=== PATIENT | female | born 1970 ===

== ENCOUNTER 2021-10-26 08:02 | Outpatient (CLI) | payer OTHER, SELFPAY ==
--- NOTE | 2021-10-26 06:00 | DI.RAD_ITS ---
Exam(s) XR PAIN CLINIC FLUORO JOINT IN EXAM: XR PAIN CLINIC FLUORO JOINT IN CLINICAL HISTORY: Dx: Right shoulder pain. TECHNIQUE: Fluoroscopy was provided for the referring physician for guidance with performing pain cl inic injection procedure. COMPARISON: No exams were available for comparison FINDINGS: Right shoulder injection. Please see procedure note for details. Fluoro time: 42.6 seconds RADIATION DOSE DELIVERED: Ka,r=3.9 mGy
[2021-10-26 08:14] VITALS: BP 119/73; PULSE 70; RESP 20; TEMP 36.5; O2SAT 99
--- NOTE | 2021-10-26 09:07 | PDOC.PAIN ---
Pain Clinic Procedure Note Procedure Note Procedure Note: Right Shoulder nerve block PROCEDURE NOTE Date of Service: October 26, 2021 Patient: Keyona Irwin Provider: Ulysses Guan, MPH Pre Operative Diagnosis: Shoulder Pain Post Operative Diagnosis: Same Pre-procedure pain: VAS= 5/10 PROCEDURE: 1. Nerve block of the right Suprascapular articular branch from the Suprascapular Nerve 2. Nerve block of the right Axillary articular branch from the Axillary Nerve 3. Nerve block of the right Lateral Pectoral articular branch from the Lateral Pectoral Nerve Keyona Irwin was brought to the procedure room and placed on the exam table in a comfortable supine position for the posterior ablations of the Suprascapular and Axillary nerve branches. The target site for needle placement was obtained by manual palpation with radiographic confirmation. The sterile field was prepared using chloroprep and sterile drapes. Local anesthesia superficial and deep was provided by local infiltration of 2% lidocaine. The patient was rotated after the completion of the posterior Suprascapular and Axillary nerve branch block to a prone position to perform the anterior ablation of the Lateral Pectoral nerve branch. The target site for needle placement was obtained by manual palpation with radiographic confirmation. The sterile field was prepared using chloraprep and sterile drapes. Local anesthesia superficial was provided by local infiltration of 1cc of 2% Lidocaine. I placed 1 cc of 0.5% Bupivacaine at each target site. A 22G 3.5 spinal needle was placed over the right shoulder joint. For the suprascapular target the spinal needle was placed inferior to the spinoglenoid notch on the most lateral border of the glenoid fossa rim. For the axillary target the spinal needle was advanced to the inferior most lateral border of the greater tubercle. For the lateral pectoral target the spinal needle was placed at the midpoint of the coracoid process. All imaging was done using fluoroscopy. I placed 1 cc of 0.5% Bupivacaine at the target site. The needles were withdrawn. POST PROCEDURE EVALUATION: Post-procedure pain VAS = 2/10. Much better range of motion to the right shoulder after the procedure. She will keep track of the 1-4 hour post-procedure pain levels to the right shoulder. She will call us back with these pain scores. Follow up plans and appointments were discussed with the Keyona . Post procedure instruction was given as documented in nursing documentation and having met discharge criteria, Keyona was discharged from the [facility]. COMMENTS: No complications. F/U with our office as needed. I personally performed this entire procedure. Ulysses Guan DO, MPH Attending Physician Pain Management
[2021-10-26 09:20] VITALS: BP 127/80; PULSE 58; RESP 12; O2SAT 100
[2021-10-26] MEDS: Bupivacaine 0.5% Pres-Free 30 ML VIAL IJ (09:54)
[2021-10-26] MEDS: Omnipaque 240 MG/ML 50 ML BTL IJ (09:55)
== END 2021-10-26 08:03 | disposition home or self-care (01) ==
LOC: PC 08:04
PROVIDERS: Visit Provider Preventive Medicine Occupational Medicine
DX: M25.511 Pain in right shoulder (principal)
CPT/HCPCS: 64450; 64418; 77002; Q9967

== ENCOUNTER 2022-04-12 11:02 | Outpatient (CLI) | payer OTHER, SELFPAY ==
[2022-04-12 11:10] VITALS: BP 117/60; PULSE 68; RESP 20; TEMP 37; O2SAT 99
[2022-04-12] MEDS: fentaNYL 100 MCG/2 ML VIAL IVP ×3 (11:47→12:27)
[2022-04-12] MEDS: Midazolam 2 MG/2 ML VIAL IVP (11:47)
[2022-04-12] MEDS: Lactated Ringers 500 ML 80 ML IV (11:48)
--- NOTE | 2022-04-12 12:45 | DI.RAD_ITS ---
Exam(s) XR PAIN CLINIC FLUORO JOINT IN EXAM: XR PAIN CLINIC FLUORO JOINT IN CLINICAL HISTORY: Dx: Shoulder Pain TECHNIQUE: 2D and realtime digital imaging was performed. CONTRAST MATERIAL: Refer to procedure report. COMPARISON: No exams were available for comparison FINDINGS: Fluoroscopy was provided for Dr. Guan during the performance of a right shoulder radiofrequency abla tion. Please refer to the procedure report for complete details. Ka,r=8.06 mGy IMPRESSION:
[2022-04-12 12:49] VITALS: BP 133/89; PULSE 60; RESP 18; O2SAT 100
--- NOTE | 2022-04-12 13:10 | PDOC.PAIN ---
Date of service: 04/12/22 Time of Service: 13:17 Pain Clinic Procedure Note Procedure Note Procedure Note: Right Shoulder Radiofrequency with Coolief Machine PROCEDURE NOTE Date of Service: April 12, 2022 Patient: Keyona Irwin Provider: Ulysses Guan DO, MPH Pre Operative Diagnosis: Shoulder Pain Post Operative Diagnosis: Same Pre-procedure pain: VAS= 6/10 PROCEDURE: 1. Ablation of the Suprascapular articular branch from the Suprascapular Nerve 2. Ablation of the Axillary articular branch from the Axillary Nerve 3. Ablation of the Lateral Pectoral articular branch from the Lateral Pectoral Nerve Keyona Irwin was brought to the procedure room and placed on the exam table in a comfortable supine position for the posterior ablations of the Suprascapular and Axillary nerve branches. The target site for needle placement was obtained by manual palpation with radiographic confirmation. The sterile field was prepared using chloroprep and sterile drapes. Local anesthesia superficial and deep was provided by local infiltration of 2% lidocaine. The patient was rotated after the completion of the posterior Suprascapular and Axillary nerve branch ablations to a prone position to perform the anterior ablation of the Lateral Pectoral nerve branch. The target site for needle placement was obtained by manual palpation with radiographic confirmation. The sterile field was prepared using chloraprep and sterile drapes. Local anesthesia superficial and deep was provided by local infiltration of []. A 17g 75 mm radiofrequency introducer needle with a 2 mm active tip was placed overlying the [right/left] shoulder joint. For the suprascapular target the introducer was placed inferior to the spinoglenoid notch on the most lateral border of the glenoid fossa rim and then redirected inferiorly approximately 4mm for the 2nd lesion. For the axillary target the introducer was advanced to the inferior most lateral border of the greater tubercle and then repositioned approximately 4mm inferiorly for the 2nd lesion. For the lateral pectoral target the introducer was placed at the midpoint of the coracoid process. All imaging was done using fluoroscopy. Attempted aspiration yielded no blood. Lateral x-ray views showed all the needles at proper depth. Motor stimulation was tested ad 2.0 volts with no arm movement. Images were saved in AP and lateral. A mixture consisting of [] was slowly injected. Then a radiofrequency ablation of each of the shoulder nerve branches (suprascapular, axillary, and lateral pectoral) were done at 80 degrees Celsius for 2 minutes and 30 seconds each. The needles were withdrawn. POST PROCEDURE EVALUATION: IMPRESSION: 1. The patient will be contacted in 4-6 weeks for follow up. 2. Estimated Blood Loss: < 5ml 3. Medications that were given are documented in [facility] Follow up plans and appointments were discussed with the Keyona . Post procedure instruction was given as documented in nursing documentation and having met discharge criteria, Keyona was discharged from the [facility]. COMMENTS: No complications. Post-procedure pain VAS was 6/10. F/U with our office as needed. Ulysses Guan DO, MPH [facility]-Pain Management [facility]-Center for Pain Management
[2022-04-12] MEDS: Lidocaine 2% Pres-Free 5 ML VIAL IJ (13:14)
[2022-04-12] MEDS: Bupivacaine 0.5% Pres-Free 10 ML VIAL IJ (13:14)
[2022-04-12] MEDS: methylPREDNISolone ACETATE 40 MG/ML VIAL IJ (13:15)
== END 2022-04-12 11:03 | disposition home or self-care (01) ==
LOC: PC 11:02
PROVIDERS: Visit Provider Preventive Medicine Occupational Medicine
DX: M25.511 Pain in right shoulder (principal)
CPT/HCPCS: 64633; 64634; 77002; J1030; J2250; J3010